=== PATIENT | female | born 1995 | race Caucasian/White ===

== ENCOUNTER 2016-12-13 11:56 | Emergency (ER) | payer MEDICAID ==
[~2016-12-13] VITALS: Ht 172.7 cm; Wt 87.0 kg
[~2016-12-13 11:56] MED LIST: ALBU8.5H8 INH
[2016-12-13] MEDS ORDERED: ALBUTEROL/IPRATROPIUM 2.5MG/0.5MG, 3 ML NPPB ONE (12:30)
[2016-12-13] MEDS ORDERED: ALBUTEROL/IPRATROPIUM 2.5MG/0.5MG, 3 ML ONE (12:30)
[2016-12-13 12:45] LABS: HCG UR OBC PASS
[2016-12-13 13:56] VITALS: BP 94/58
== END 2016-12-13 13:58 | disposition home or self-care (01) ==
LOC: ED 13:51
DX: J20.9 Acute bronchitis, unspecified (principal); B96.89 Other specified bacterial agents as the cause of diseases classified elsewhere; J45.909 Unspecified asthma, uncomplicated
CPT/HCPCS: 71010; 81025; 93005; 94640; 99285; J7512; J7620

== ENCOUNTER 2017-02-06 10:17 | Emergency (ER) | payer MEDICAID ==
[~2017-02-06] VITALS: Ht 172.7 cm; Wt 87.7 kg
[2017-02-06 10:18] VITALS: BP 137/73
[2017-02-06] MEDS ORDERED: ALBUTEROL/IPRATROPIUM 2.5MG/0.5MG, 3 ML ONE (10:55)
[2017-02-06] MEDS ORDERED: ALBUTEROL/IPRATROPIUM 2.5MG/0.5MG, 3 ML NPPB ONE (11:00)
== END 2017-02-06 11:17 | disposition home or self-care (01) ==
LOC: ED 10:34
DX: J45.31 Mild persistent asthma with (acute) exacerbation (principal); J00 Acute nasopharyngitis [common cold]; Z87.891 Personal history of nicotine dependence
CPT/HCPCS: 71020; 93005; 94640; 99284; J7512; J7620

== ENCOUNTER 2018-06-14 17:31 | Emergency (ER) | payer MEDICAID, OTHER ==
[~2018-06-14] VITALS: Ht 172.7 cm; Wt 100.4 kg
[2018-06-14 18:20] LABS: BASOPHILS # (AUTO) 0.05 x10^3/uL (0-0.1); BASOPHILS % (AUTO) 0 % (0-1); EOSINOPHILS # (AUTO) 0.35 x10^3/uL (0-0.4); EOSINOPHILS % (AUTO) 3 % (1-7); LYMPHOCYTES # (AUTO) 3.76 x10^3/uL (1-3.4); LYMPHOCYTES % (AUTO) 30 % (22-44); MD NO; MEAN CORPUSCULAR HEMOGLOBIN 29.6 pg (27.0-34.8); MEAN CORPUSCULAR HGB CONC 32.5 g/dL (32.4-35.8); MEAN CORPUSCULAR VOLUME 91.2 fL (80-100); MEAN PLATELET VOLUME 8.2 fL (7.4-10.4); MONOCYTES # (AUTO) 0.61 x10^3/uL (0.2-0.8); MONOCYTES % (AUTO) 5 % (2-9); NEUTROPHILS # (AUTO) 7.71 x10^3/uL (1.8-6.8); NEUTROPHILS % (AUTO) 62 % (42-75); PLATELET COUNT 311 x10^3/uL (130-400); RED CELL DISTRIBUTION WIDTH 15.1 % (9.6-15.2)
[2018-06-14 18:26] LABS: ALBUMIN 3.9 g/dL (3.4-5.0); ANION GAP 5 mmol/L (5-15); CHLORIDE 111 mmol/L (98-107)
[2018-06-14 18:27] LABS: CREATININE 0.85 mg/dL (0.55-1.02)
--- NOTE | 2018-06-14 19:40 | NUR ---
Becca LYONS, at bedside to discuss ED findings and d/c information.
[2018-06-14 20:59] VITALS: BP 116/74
== END 2018-06-14 21:00 | disposition home or self-care (01) ==
LOC: ED 18:31
DX: M94.0 Chondrocostal junction syndrome [Tietze] (principal); J30.2 Other seasonal allergic rhinitis; J45.909 Unspecified asthma, uncomplicated; Z72.9 Problem related to lifestyle, unspecified
CPT/HCPCS: 36415; 71045; 80048; 82040; 85025; 93005; 99284

== ENCOUNTER 2018-06-24 14:42 | Emergency (ER) | payer MEDICAID ==
--- NOTE | 2018-06-24 14:50 | NUR ---
EKG COMPLETED IN TRIAGE.
[2018-06-24] MEDS ORDERED: ALBUTEROL/IPRATROPIUM 2.5MG/0.5MG, 3 ML NPPB SCH (15:30)
[2018-06-24] MEDS ORDERED: ALBUTEROL/IPRATROPIUM 2.5MG/0.5MG, 3 ML ONE ×2 (15:31)
[2018-06-24 16:14] VITALS: BP 132/68
--- NOTE | 2018-06-24 16:15 | NUR ---
Dr. Tamayo at bedside to update pt on ED findings and POC. Pt medicated per JUN.
--- NOTE | 2018-06-24 16:40 | NUR ---
Patient/Caregiver given discharge instructions and they have confirmed that they understand the instructions. Patient ambulatory with steady gait.
== END 2018-06-24 16:42 ==
LOC: ED 15:44
DX: J45.41 Moderate persistent asthma with (acute) exacerbation (principal); F17.200 Nicotine dependence, unspecified, uncomplicated
CPT/HCPCS: 71046; 93005; 94640; 99284; J7512

== ENCOUNTER 2018-09-30 10:21 | Emergency (ER) | payer SELFPAY ==
[~2018-09-30] VITALS: Ht 172.7 cm; Wt 91.4 kg
[2018-09-30 10:25] VITALS: BP 149/92
[2018-09-30] MEDS ORDERED: FLUORESCEIN OPHTHALMIC 1 MG STRIP ONE (10:29)
[2018-09-30] MEDS ORDERED: PROPARACAINE OPHTH 0.5%, 15ML ONE (10:30)
--- NOTE | 2018-09-30 10:49 | NUR ---
PT HAS CO OF RIGHT EYE REDNESS AND SWELLING
--- NOTE | 2018-09-30 11:06 | NUR ---
Patient/Caregiver given discharge instructions and they have confirmed that they understand the instructions. Patient ambulatory with steady gait.
== END 2018-09-30 11:08 | disposition home or self-care (01) ==
LOC: ED 11:00
DX: H10.021 Other mucopurulent conjunctivitis, right eye (principal); F17.200 Nicotine dependence, unspecified, uncomplicated
CPT/HCPCS: 99283